=== PATIENT | male | born 1990 | race Two or more races ===

== ENCOUNTER 2022-06-29 17:09 | Emergency (ER) | payer BC ==
[~2022-06-29] VITALS: Ht 182.9 cm; Wt 90.7 kg
== END 2022-06-29 21:04 | disposition home or self-care (01) ==
LOC: ER 17:09
DX: B34.9 Viral infection, unspecified (principal)

== ENCOUNTER 2022-09-29 20:48 | Emergency (ER) | payer BC ==
[~2022-09-29] VITALS: Ht 182.9 cm; Wt 90.7 kg
== END 2022-09-30 | disposition home or self-care (01) ==
LOC: ER 20:48
DX: J06.9 Acute upper respiratory infection, unspecified (principal); R53.81 Other malaise; Z20.822 Contact with and (suspected) exposure to COVID-19

== ENCOUNTER 2023-06-13 21:15 | Emergency (ER) | payer BC ==
[~2023-06-13] VITALS: Ht 182.9 cm; Wt 95.3 kg
[2023-06-13] MEDS ORDERED: METHYLPREDNISOLONE SOD SUCC 125 MG VIAL IM STA (22:43)
[2023-06-13] MEDS ORDERED: KETOROLAC TROMETHAMINE 30 MG VIAL IM STA (22:43)
== END 2023-06-13 22:55 | disposition home or self-care (01) ==
LOC: ER 21:16
DX: M25.512 Pain in left shoulder (principal)

== ENCOUNTER 2023-06-19 12:01 | Outpatient (CLI) | payer BC | END 2023-06-19 12:04 | disposition home or self-care (01) | LOC: SONOGRAMA 12:01 | DX: M25.572 Pain in left ankle and joints of left foot (principal) ==